=== PATIENT | female | born 1990 | race Hispanic/Latino ===

== ENCOUNTER 2017-12-11 09:21 | Emergency (ER) | payer OTHER ==
[~2017-12-11] VITALS: Ht 157.5 cm; Wt 77.1 kg
[2017-12-11 09:29] VITALS: BP 121/65
--- NOTE | 2017-12-11 09:48 | ED HEAD/FACIAL INJ COMPLAINT ---
History of Present Illness General Chief Complaint: Facial or Head Injury Stated Complaint: ? BROKEN NOSE Source: patient Exam Limitations: no limitations Vital Signs & Intake/Output Vital Signs & Intake/Output Vital Signs Date Time Temp Pulse Resp B/P B/P Pulse O2 O2 Flow FiO2 Mean Ox Delivery Rate 12/11 0940 98 Room Air Room Air 12/11 928 96.6 74 18 121/65 97 Room Air Allergies Coded Allergies: NO KNOWN ALLERGIES (09/16/11) Reconcile Medications Ibuprofen 800 MG TABLET 1 TAB PO TID PAIN Triage Note: PT STATES SHE THINKS HER NOSE IS BROKEN. PT STATES SHE FELL IN THE BATHTUB AND THE SHOWER [place] FELL ON HER NOSE PT HAS BRUISING TO BOTH EYES AND NOSE. Triage Nurses Notes Reviewed? yes Onset: Abrupt Severity: moderate, severe Location: nose Method of Injury: direct blow Loss of Consciousness: no loss of consciousness : No Patient currently breastfeeds: No HPI: 26-year-old female comes into the emergency room for further evaluation of nose pain. Patient reports that 5 days ago bar from the shower fell down and hit her directly on the bridge of her nose. She's had some swelling. Some associated sharp throbbing pain. Denies any orbital pain to her eyes. Comes in for further evaluation. Past History Travel History Traveled to [place] past 21 day No Medical History Any Pertinent Medical History? none Surgical History Surgical History: non-contributory Psychosocial History What is your primary language Croatian Tobacco Use: Current Daily Use Daily Tobacco Use Amount/Type: => 5 Cigarettes daily ETOH Use: occasional use Illicit Drug Use: marijuana Family History Hx Contributory? No Review of Systems Review of Systems Constitutional: Reports: no symptoms. EENTM: Reports: no symptoms. Respiratory: Reports: no symptoms. Cardiovascular: Reports: no symptoms. GI: Reports: no symptoms. Genitourinary: Reports: no symptoms. Musculoskeletal: Reports: see HPI. Skin: Reports: no symptoms. Neurological/Psychological: Reports: no symptoms. Hematologic/Endocrine: Reports: no symptoms. Immunologic/Allergic: Reports: no symptoms. All Other Systems: Reviewed and Negative Physical Exam Physical Exam General Appearance: well developed/nourished, mild distress Head: atraumatic Eyes: Bilateral: normal appearance, PERRL, EOMI. Ears, Nose, Throat: normal pharynx, hearing grossly normal, swelling to nose, tenderness with palpation over bridge of nose, no septal hematoma appreciated Neck: normal inspection, supple, bruising to nose, swelling, tedneress with palpation Respiratory: normal breath sounds, no respiratory distress Back: normal inspection Extremities: normal inspection, normal range of motion, no edema Psychiatric: awake, alert, oriented x 3 Cranial Nerves: normal hearing, normal speech, PERRL Coordination/Gait: normal gait Motor/Sensory: no motor/sensory deficits Skin: intact, normal color, warm/dry Progress Differential Diagnosis: facial fracture, orbit fracture, skull fracture Plan of Care: Laboratory Tests 12/11/1748: Urine Test Cancelled Diagnostic Imaging: Viewed by Me: Radiology Read. Discussed w/RAD: Radiology Read. Radiology Impression: PATIENT: DAKOTAH DECKER PRESENT AGE: 26 PATIENT ACCOUNT NO: [id number] : 91 LOCATION: [facility] ORDERING PHYSICIAN: Colton SOLIMAN SERVICE DATE: 12/11/17 EXAM TYPE: RAD - XRY-NASAL BONES EXAMINATION: XR NASAL BONES CLINICAL INFORMATION: Nose pain and swelling following injury. COMPARISON: No relevant prior imaging. TECHNIQUE: 3 views of the nasal bones were obtained. FINDINGS: There are acute minimally displaced bilateral nasal bone fractures. IMPRESSION: Acute minimally displaced bilateral nasal bone fractures. DICTATED BY: Dalton Willingham MD DATE/TIME DICTATED:12/11/171029 MACHINE TURNER:SELMA DATE/TIME TRANSCRIBED:1029 CONFIDENTIAL, DO NOT COPY WITHOUT APPROPRIATE AUTHORIZATION. < Electronically signed in Other Vendor System> SIGNED BY: Dalton Willingham MD 12/11/17 1035 Comments: 12/11/2017 10:46:30 AM Patient clinically looks well. Patient is no apparent distress. Minimally displaced fracture. Follow-up with ear nose and throat doctor. Departure Departure Disposition: HOME OR SELF CARE Condition: Stable Clinical Impression Primary Impression: Nasal bone fracture Referrals: Darion Ray MD Patient Has No Primary Care Dr (PCP/Family) Additional Instructions: Take ibuprofen as prescribed. Follow-up with ear nose and throat doctor. Return if any concerns worsening symptoms. Ice. Please go over all results of today's visit with your primary care doctor. Contact your primary care doctor to let them know you were here in the emergency room. There may be nonspecific findings which may not be related to your visit today here in the emergency room but may require further evaluation and chronic monitoring by your primary care doctor. If you had a laceration today the chance of foreign body always remains. You should follow-up with your primary care doctor for recheck in 3-5 days for a wound check. If you had an x-ray done there is a chance that a fracture could have been missed on initial read and you should follow-up with your primary care doctor for repeat x-rays if symptoms persist. If your blood pressure was elevated here in the emergency room please have rechecked by [facility] primary care doctor within the next 48. If you were prescribed a narcotic here in the emergency room or any type of controlled substances you're not allowed to drive while taking this medication or operate any type of heavy machinery. Narcotics can make you feel lightheaded dizziness nausea and can cause constipation. You may need to parts picker a stool softener. Thank you for choosing [facility] emergency room. Please return to the emergency room immediately if you have any other concerns worsening of symptoms. Departure Forms: Customer Survey General Discharge Information Prescriptions: Current Visit Scripts Ibuprofen 1 TAB PO TID #30 TAB
--- NOTE | 2017-12-11 10:35 | RADIOLOGY REPORT ---
EXAMINATION: XR NASAL BONES CLINICAL INFORMATION: Nose pain and swelling following injury. COMPARISON: No relevant prior imaging. TECHNIQUE: 3 views of the nasal bones were obtained. FINDINGS: There are acute minimally displaced bilateral nasal bone fractures. IMPRESSION: Acute minimally displaced bilateral nasal bone fractures.
[2017-12-11] MEDS ORDERED: IBUPROFEN800 M1 PO ×2 (10:45→11:45)
== END 2017-12-11 10:53 ==
LOC: ERH 09:21
DX: S02.2XXA Fracture of nasal bones, initial encounter for closed fracture (principal); W20.8XXA Other cause of strike by thrown, projected or falling object, initial encounter; Y92.9 Unspecified place or not applicable; Y93.9 Activity, unspecified
CPT/HCPCS: 70160; 81025